=== PATIENT | female | born 1945 | race Caucasian/White ===

== ENCOUNTER 2016-11-09 10:11 | Day surgery (SDC) | payer MEDICARE, OTHER ==
[~2016-11-09 10:11] MED LIST: KETOROLAC TROMETHAMINE 0.45% 4 DROP/0.4 ML DROPERETTE OS PRN
[2016-11-09] MEDS ORDERED: LIDOCAINE 1% INJ-PF (10 MG/ML) 30 ML SDV ONE (10:42)
[2016-11-09] MEDS ORDERED: TOBRAMYCIN SULFATE/DEXAMETH OPH OINTMENT 3.5 GM ONE (10:42)
[2016-11-09] MEDS ORDERED: CHONDR SU A NA/HYALUR INTRAOC KIT (SURGICARE) ONE (10:42)
[2016-11-09] MEDS ORDERED: EPINEPHRINE INJ/PF 1 MG/1 ML AMPULE ONE (10:42)
[2016-11-09] MEDS: CYCLOPENTOLATE 0.2%/PHENYLEPHRINE 1% OPH SOLN 2 ML OS PRN ×3 (10:53→11:11)
[2016-11-09] MEDS: TROPICAMIDE 1% OPH SOLN 3 ML OS PRN ×3 (10:53→11:10)
[2016-11-09] MEDS: BESIFLOXACIN HCL 0.6% OPH SUSP 5 ML BOTTLE OS PRN ×3 (10:54→11:58)
[2016-11-09] MEDS: TETRACAINE HCL 0.5% OPH SOLN 0.6 ML DROPERETTE OS PRN ×3 (10:55→11:34)
[2016-11-09] MEDS ORDERED: MIDAZOLAM 2 MG/2 ML INJ ONE (11:09)
== END 2016-11-09 12:36 | disposition home or self-care (01) ==
LOC: SC 10:11
PROVIDERS: ATTEND Ophthalmology
PROC: 08RK3JZ Replacement of Left Lens with Synthetic Substitute, Percutaneous Approach (ICD-10-PCS; principal; 2016-11-09 11:15)
DX: H25.12 Age-related nuclear cataract, left eye (principal); J45.909 Unspecified asthma, uncomplicated; I10 Essential (primary) hypertension; E78.00 Pure hypercholesterolemia, unspecified; E03.9 Hypothyroidism, unspecified; K21.9 Gastro-esophageal reflux disease without esophagitis; Z79.51 Long term (current) use of inhaled steroids; Z79.899 Other long term (current) drug therapy; Z79.82 Long term (current) use of aspirin
CPT/HCPCS: 66984; V2788; J2250; J3490 ×3; A9270; J0171; 142

== ENCOUNTER 2016-11-23 09:48 | Day surgery (SDC) | payer MEDICARE, OTHER ==
[~2016-11-23 09:48] MED LIST changes: +CHONDR SU A NA/HYALUR INTRAOC KIT (SURGICARE) ONE; +EPINEPHRINE INJ/PF 1 MG/1 ML AMPULE ONE; +KETOROLAC TROMETHAMINE 0.45% 4 DROP/0.4 ML DROPERETTE OD PRN; -KETOROLAC TROMETHAMINE 0.45% 4 DROP/0.4 ML DROPERETTE OS PRN; +LIDOCAINE 1% INJ-PF (10 MG/ML) 30 ML SDV ONE; +LIDOCAINE 3.5% OPH GEL/PF 1 ML/TUBE OD PRN
[2016-11-23] MEDS: CYCLOPENTOLATE 0.2%/PHENYLEPHRINE 1% OPH SOLN 2 ML OD PRN ×3 (10:09→10:28)
[2016-11-23] MEDS: TROPICAMIDE 1% OPH SOLN 3 ML OD PRN ×3 (10:09→10:28)
[2016-11-23] MEDS: TETRACAINE HCL 0.5% OPH SOLN 0.6 ML DROPERETTE OD PRN ×4 (10:10→10:43)
[2016-11-23] MEDS: BESIFLOXACIN HCL 0.6% OPH SUSP 5 ML BOTTLE OD PRN ×4 (10:10→11:08)
[2016-11-23] MEDS ORDERED: FENTANYL CITRATE INJ/PF 100 MCG/2 ML AMPUL ONE (10:28)
[2016-11-23] MEDS ORDERED: MIDAZOLAM 2 MG/2 ML INJ ONE (10:28)
[2016-11-23] MEDS: TOBRAMYCIN SULFATE/DEXAMETH OPH OINTMENT 3.5 GM ONE ×2 (11:08)
== END 2016-11-23 11:50 | disposition home or self-care (01) ==
LOC: SC 09:48
PROVIDERS: ATTEND Ophthalmology
PROC: 08RJ3JZ Replacement of Right Lens with Synthetic Substitute, Percutaneous Approach (ICD-10-PCS; principal; 2016-11-23 10:45)
DX: H25.11 Age-related nuclear cataract, right eye (principal); Z98.42 Cataract extraction status, left eye; I10 Essential (primary) hypertension; K21.9 Gastro-esophageal reflux disease without esophagitis; J45.909 Unspecified asthma, uncomplicated; E78.00 Pure hypercholesterolemia, unspecified; E03.9 Hypothyroidism, unspecified; Z79.51 Long term (current) use of inhaled steroids; Z79.899 Other long term (current) drug therapy; Z79.82 Long term (current) use of aspirin
CPT/HCPCS: 66984; J2250; J3490 ×3; A9270; J0171; J3010; 142

== ENCOUNTER 2017-07-11 03:55 | Emergency (ER) | payer MEDICARE, OTHER ==
[2017-07-11 04:06] VITALS: BP 193/78
--- NOTE | 2017-07-11 04:28 | RADIOLOGY REPORT (SQ) ---
EXAM DESCRIPTION: Right RIBS and single view chest CLINICAL HISTORY: 71 years, Female, pain to right side ribs COMPARISON: None. NUMBER OF VIEWS: Single view of the chest and 3 views of the right ribs. TECHNIQUE: Single view of the chest and 3 views of the right ribs. LIMITATIONS: None. FINDINGS: Cardiomediastinal silhouette has normal size and contour. No consolidation, pneumothorax, or pleural effusion. Upper abdominal soft tissues unremarkable. Acute minimally displaced fractures of the right lateral sixth and seventh ribs. IMPRESSION: 1. Acute minimally displaced fractures of the right lateral sixth and seventh ribs. No pneumothorax identified. 2011 [employer]- All Rights Reserved
--- NOTE | 2017-07-11 05:30 | ER Document Report ---
HPI - HPI Patient complains to provider of: right rib pain, fall Pain Level: 4 Context: Patient is a 71-year-old female that comes emergency department for chief complaint of right-sided rib pain. She states she fell 4 days ago, has a bruised area on her right ribs, she states she made a movement with a deep breath earlier and felt a pop and felt sharp pain. She states pain has not gone away so she came in for evaluation. She denies shortness of breath although pain is worse with deep breaths. She denies dizziness, passing out, other areas of pain. She states when she fell she fell against a stool but did not hit her head. She has a small bruise on her right arm but states her arm does not hurt. She takes 81 mg of aspirin daily but otherwise does not take any blood thinners. She is very healthy generally, takes medicine for hypothyroidism. She lives at home. She drove herself here. - CONSTITUTIONAL Constitutional: DENIES: Fever, Chills - EENT EENT: DENIES: Sore Throat, Ear Pain, Eye problems - NEURO Neurology: REPORTS: Headache. DENIES: Weakness, Vision blurred, Dizzinesss / Vertigo - CARDIOVASCULAR Cardiovascular: DENIES: Chest pain - RESPIRATORY Respiratory: DENIES: Trouble Breathing, Coughing - GASTROINTESTINAL Gastrointestinal: DENIES: Abdominal Pain, Black / Bloody Stools - URINARY Urinary: DENIES: Dysuria, Urgency, Frequency - REPRODUCTIVE Reproductive: DENIES: :, Postmenopausal, Abnormal bleeding / discharge - MUSCULOSKELETAL Musculoskeletal: DENIES: Extremity pain Past Medical History - General Information source: Patient - Social History Smoking Status: Never Smoker Chew tobacco use (# tins/day): No Frequency of alcohol use: None Drug Abuse: None Lives with: Family Family History: Reviewed & Not Pertinent Patient has suicidal ideation: No Patient has homicidal ideation: No - Past Medical History Cardiac Medical History: Reports: Hx Coronary Artery Disease, Hx Hypercholesterolemia, Hx Hypertension Denies: Hx Heart Attack Pulmonary Medical History: Reports: Hx Asthma, Hx Pneumonia Denies: Hx Bronchitis, Hx COPD Neurological Medical History: Denies: Hx Cerebrovascular Accident, Hx Seizures Renal/ Medical History: Denies: Hx Peritoneal Dialysis GI Medical History: Denies: Hx Hepatitis, Hx Hiatal Hernia, Hx Ulcer Musculoskeltal Medical History: Denies Hx Arthritis Infectious Medical History: Denies: Hx Hepatitis Past Surgical History: Reports: Hx Gynecologic Surgery - tubal ligation, Hx Tubal Ligation. Denies: Hx Hysterectomy, Hx Mastectomy, Hx Open Heart Surgery, Hx Pacemaker - Immunizations Hx Diphtheria, Pertussis, Tetanus Vaccination: No Vertical Provider Document - CONSTITUTIONAL General Appearance: WD/WN, No Apparent Distress - INFECTION CONTROL TRAVEL OUTSIDE OF THE [place] IN LAST 30 DAYS: No - HEENT HEENT: Atraumatic, Normocephalic - NECK Neck: Normal Inspection - RESPIRATORY Respiratory: Breath Sounds Normal, No Respiratory Distress. negative: Chest Non -Tender - Tenderness over the right posterior lateral chest at the lower ribs, there is a contusion noted to the area, no crepitus, no other abnormalities noted over the chest - CARDIOVASCULAR Cardiovascular: Regular Rate, Regular Rhythm - GI/ABDOMEN Gastrointestinal: Abdomen Soft, Abdomen Non-Tender - BACK Back: Normal Inspection - MUSCULOSKELETAL/EXTREMETIES Musculoskeletal/Extremeties: KRYSTIN DUARTE. negative: Non-Tender - Small bruise over the right proximal outer humerus, no noted tenderness with palpation over the bone, normal range of motion of the arm, normal upper extremity exam otherwise, normal lower extremity exam - NEURO Level of Consciousness: Awake, Alert, Appropriate Motor/Sensory: No Motor Deficit, No Sensory Deficit - DERM Integumentary: Warm, Dry, No Rash Course - Re-evaluation Re-evalutation: Patient is very fit, very young appearing for her age. She does have bruising over her right posterior lateral chest wall, remaining chest and back are nontender, normal neurological exam, 4 day duration. Blood pressure is elevated, patient has pain, normally is not this elevated, this will be followed by primary care, patient will be medicated for pain after she goes home, she drove here. No headache, pain in the chest, no urinary retention. Chest film shows no lung abnormality, shows minimally displaced fractures of the sixth and seventh right ribs consistent with location of patient's pain. Discussed with patient. Provided with incentive spirometer, pain management, discussed healing, follow-up, and return precautions in detail. Patient states satisfaction and agreement. - Vital Signs Vital signs: Temp Pulse Resp BP Pulse Ox 98.2 F 81 18 193/78 H 99 07/11/17 04:04 07/11/17 04:04 07/11/17 04:04 07/11/17 04:06 07/11/17 04:04 Discharge - Discharge Clinical Impression: Right rib fracture Qualifiers: Encounter type: initial encounter Rib fracture type: single rib Fracture type: closed Qualified Code(s): S22.31XA - Fracture of one rib, right side, initial encounter for closed fracture Fall Qualifiers: Encounter type: initial encounter Qualified Code(s): W19.XXXA - Unspecified fall, initial encounter Condition: Stable Disposition: HOME, SELF-CARE Additional Instructions: Your x-ray shows fractures of the sixth and seventh ribs on the right side. No other abnormalities are seen. This will take weeks to heal, I recommend that you use the incentive spirometer to take full breaths multiple times a day to avoid getting pneumonia. You have been provided with pain medication, take if needed, if you do take it also take the Colace stool softener to avoid constipation. Follow-up with primary care. Return immediately if you worsen including difficulty breathing, fever, vomiting, or any other concerning or worsening symptoms. Prescriptions: Morphine Sulfate [Morphine Ir 15 Mg Tablet] 15 mg PO Q4HP PRN #20 tablet PRN Reason: Docusate Sodium [Colace 100 mg Capsule] 100 mg PO ASDIR PRN #30 capsule PRN Reason: Forms: Elevated Blood Pressure Referrals: ROCHELLE DEL TORO MD [Primary Care Provider] - Follow up as needed
[2017-07-11] MEDS ORDERED: HYDROCODONE/ACETAMINOPHEN 5-325 MG (6 TAB/ER DISP) PO PRN (05:47)
[2017-07-11] MEDS ORDERED: ONDANSETRON ODT 4 MG TAB (6 TAB/ER DISP) PO PRN (05:47)
== END 2017-07-11 05:56 | disposition home or self-care (01) ==
LOC: ER 03:55
DX: S22.41XA Multiple fractures of ribs, right side, initial encounter for closed fracture (principal); S40.021A Contusion of right upper arm, initial encounter; W19.XXXA Unspecified fall, initial encounter; R51 Headache; E03.9 Hypothyroidism, unspecified; I25.10 Atherosclerotic heart disease of native coronary artery without angina pectoris; I10 Essential (primary) hypertension; Z79.899 Other long term (current) drug therapy; Z79.82 Long term (current) use of aspirin
CPT/HCPCS: 99283; 71101; A9270 ×2

== ENCOUNTER 2018-04-15 12:13 | Emergency (ER) | payer MEDICARE, OTHER ==
--- NOTE | 2018-04-15 12:37 | ER Document Report ---
ED Medical Screen (RME) - General Chief Complaint: Flu Symptoms Stated Complaint: FLU SYMPTOMS Time Seen by Provider: 04/15/18 12:35 Primary Care Provider: ROCHELLE DEL TORO MD [Primary Care Provider] - Follow up as needed Mode of Arrival: Ambulatory Information source: Patient TRAVEL OUTSIDE OF THE [place] IN LAST 30 DAYS: No - HPI Patient complains to provider of: cough, fever Onset: Last week - pt with c/o cough, fever, and body aches for the past few days. Did get flu shot this year - Related Data Allergies/Adverse Reactions: No Known Allergies Allergy (Verified 04/15/18 12:14) Past Medical History - Past Medical History Cardiac Medical History: Reports: Hx Coronary Artery Disease, Hx Hypercholesterolemia, Hx Hypertension Denies: Hx Heart Attack Pulmonary Medical History: Reports: Hx Asthma, Hx Pneumonia Denies: Hx Bronchitis, Hx COPD Neurological Medical History: Denies: Hx Cerebrovascular Accident, Hx Seizures Renal/ Medical History: Denies: Hx Peritoneal Dialysis GI Medical History: Denies: Hx Hepatitis, Hx Hiatal Hernia, Hx Ulcer Musculoskeltal Medical History: Denies Hx Arthritis Infectious Medical History: Denies: Hx Hepatitis Past Surgical History: Reports: Hx Gynecologic Surgery - tubal ligation, Hx Tubal Ligation. Denies: Hx Hysterectomy, Hx Mastectomy, Hx Open Heart Surgery, Hx Pacemaker - Immunizations Hx Diphtheria, Pertussis, Tetanus Vaccination: No Physical Exam - Vital signs Vitals: Temp Pulse Resp BP Pulse Ox 100 F 98 20 153/62 H 99 04/15/18 12:24 04/15/18 12:24 04/15/18 12:24 04/15/18 12:24 04/15/18 12:24 Course - Vital Signs Vital signs: Temp Pulse Resp BP Pulse Ox 100 F 98 20 153/62 H 99 04/15/18 12:24 04/15/18 12:24 04/15/18 12:24 04/15/18 12:24 04/15/18 12:24 Doctor's Discharge - Discharge Referrals: ROCHELLE DEL TORO MD [Primary Care Provider] - Follow up as needed
[2018-04-15 13:06] LABS: ABSOLUTE EOSINOPHILS # (AUTO) 0.1 10^3/uL (0.0-0.6); ABSOLUTE LYMPHOCYTES (AUTO) 1.6 10^3/uL (0.5-4.7); ABSOLUTE MONOCYTES (AUTO) 0.9 10^3/uL (0.1-1.4); ABSOLUTE NEUT (AUTO) 6.4 10^3/uL (1.7-8.2); BASOPHILS % (AUTO) 0.4 % (0-2); HEMATOCRIT 38.5 % (36.0-47.0); HEMOGLOBIN 13.2 g/dL (12.0-15.5); MEAN CORPUSCULAR HEMOGLOBIN 32.4 pg (27.0-33.4); MEAN CORPUSCULAR HGB CONC 34.2 g/dL (32.0-36.0); MEAN CORPUSCULAR VOLUME 95 fl (80-97); MONOCYTES % (AUTO) 10.3 % (3-13); PLATELET COUNT 232 10^3/uL (150-450); RED BLOOD COUNT 4.07 10^6/uL (3.72-5.28); RED CELL DISTRIBUTION WIDTH 13.3 % (11.5-14.0); SEGMENTED NEUTROPHILS % (AUTO) 70.3 % (42-78); TOTAL CELLS COUNTED % (AUTO) 100 %; WHITE BLOOD COUNT 9.1 10^3/uL (4.0-10.5)
[2018-04-15 13:16] LABS: APPEARANCE,URINE CLEAR; BILIRUBIN,URINE NEGATIVE (NEGATIVE); COLOR,URINE STRAW; GLUCOSE, URINE NEGATIVE (NEGATIVE); KETONES,URINE NEGATIVE (NEGATIVE); LEUKOCYTE ESTERASE,URINE NEGATIVE (NEGATIVE); NITRITE,URINE NEGATIVE (NEGATIVE); PROTEIN,URINE NEGATIVE (NEGATIVE); URINE SPECIFIC GRAVITY 1.006; UROBILINOGEN,URINE NEGATIVE mg/dL (<2.0)
--- NOTE | 2018-04-15 13:20 | RADIOLOGY REPORT (SQ) ---
EXAM DESCRIPTION: CHEST 2 VIEWS COMPLETED DATE/TIME: 04/15/2018 1:07 pm REASON FOR STUDY: cough; fever COMPARISON: 07/11/2017 EXAM PARAMETERS: NUMBER OF VIEWS: two views TECHNIQUE: Digital Frontal and Lateral radiographic views of the chest acquired. RADIATION DOSE: NA LIMITATIONS: none FINDINGS: LUNGS AND PLEURA: No opacities, masses or pneumothorax. No pleural effusion. MEDIASTINUM AND HILAR STRUCTURES: No masses or contour abnormalities. HEART AND VASCULAR STRUCTURES: Heart normal size. No evidence for failure. BONES: Healed rib fractures. HARDWARE: None in the chest. OTHER: No other significant finding. IMPRESSION: NO ACUTE RADIOGRAPHIC FINDING IN THE CHEST. TECHNICAL DOCUMENTATION: JOB ID: [id number] [employer]- All Rights Reserved Reading location - IP/workstation name: [email or web address]
[2018-04-15 13:29] LABS: A TYPE INFLUENZA AG NEGATIVE (NEGATIVE); B INFLUENZA AG NEGATIVE (NEGATIVE)
[2018-04-15 13:32] LABS: ALANINE AMINOTRANSFERASE 22 U/L (9-52); ALBUMIN 4.4 g/dL (3.5-5.0); ALKALINE PHOSPHATASE 82 U/L (38-126); ANION GAP 9 (5-19); ASPARTATE AMINO TRANSFERASE 35 U/L (14-36); BILIRUBIN,DIRECT 0.3 mg/dL (0.0-0.4); BILIRUBIN,TOTAL 0.7 mg/dL (0.2-1.3); BLOOD UREA NITROGEN 7 mg/dL (7-20); CALCIUM 9.5 mg/dL (8.4-10.2); CARBON DIOXIDE 27 mmol/L (22-30); CHLORIDE 104 mmol/L (98-107); GLUCOSE 106 mg/dL (75-110); POTASSIUM 5.2 mmol/L (3.6-5.0); SODIUM 139.6 mmol/L (137-145); TOTAL PROTEIN 7.2 g/dL (6.3-8.2)
--- NOTE | 2018-04-15 15:16 | ER Document Report ---
ED General - General Chief Complaint: Flu Symptoms Stated Complaint: FLU SYMPTOMS Time Seen by Provider: 04/15/18 12:35 Primary Care Provider: ROCHELLE DEL TORO MD [Primary Care Provider] - Follow up as needed Mode of Arrival: Ambulatory Information source: Patient TRAVEL OUTSIDE OF THE [place] IN LAST 30 DAYS: No - HPI Patient complains to provider of: Flulike symptoms Onset: Other - 4 days ago Onset/Duration: Sudden Quality of pain: Achy Severity: Severe Pain Level: 4 Associated symptoms: Body/muscle aches, Chills, Productive cough, Fever, Shortness of breath. denies: Nausea, Vomiting Exacerbated by: Denies Relieved by: Denies Similar symptoms previously: No Recently seen / treated by doctor: No Notes: 72-year-old female coming in today with flulike symptoms. Patient reports headaches, teeth hurt, bones hurt, muscles ache, and low-grade fever. Symptoms have been for 4 days. She has no nausea vomiting or diarrhea. He does have asthma and feels like it has affected her asthma to some extent. She was in receipt of the flu shot this year - Related Data Allergies/Adverse Reactions: No Known Allergies Allergy (Verified 04/15/18 12:14) Past Medical History - General Information source: Patient - Social History Smoking Status: Never Smoker Family History: Reviewed & Not Pertinent Patient has suicidal ideation: No Patient has homicidal ideation: No - Past Medical History Cardiac Medical History: Reports: Hx Coronary Artery Disease, Hx Hypercholesterolemia, Hx Hypertension Denies: Hx Heart Attack Pulmonary Medical History: Reports: Hx Asthma, Hx Pneumonia Denies: Hx Bronchitis, Hx COPD Neurological Medical History: Denies: Hx Cerebrovascular Accident, Hx Seizures Renal/ Medical History: Denies: Hx Peritoneal Dialysis GI Medical History: Denies: Hx Hepatitis, Hx Hiatal Hernia, Hx Ulcer Musculoskeletal Medical History: Denies Hx Arthritis Infectious Medical History: Denies: Hx Hepatitis Past Surgical History: Reports: Hx Gynecologic Surgery - tubal ligation, Hx Tubal Ligation. Denies: Hx Hysterectomy, Hx Kidney (Renal Surgery), Hx Mastectomy, Hx Open Heart Surgery, Hx Pacemaker - Immunizations Hx Diphtheria, Pertussis, Tetanus Vaccination: No Review of Systems - Review of Systems Notes: Constitutional: Positive for fevers and chills EENT: Positive for mild redness in the eyes Cardiovascular: No chest pain. No palpitations. Respiratory: Positive for productive cough Gastrointestinal: No abdominal pain. No nausea, vomiting, or diarrhea. Genitourinary: Atraumatic. No lesions. No pain. No discharge. Musculoskeletal: Positive for myalgias and arthralgias Skin: No rash or lesions. Lymphatic: No swollen lymph nodes. Neurologic: Positive for headache. No syncope. Psychiatric: No suicidal or homicidal ideation. Physical Exam - Vital signs Vitals: Temp Pulse Resp BP Pulse Ox 100 F 98 20 153/62 H 99 04/15/18 12:24 04/15/18 12:24 04/15/18 12:24 04/15/18 12:24 04/15/18 12:24 - Notes Notes: General: Well-developed, well-nourished. In no acute distress. Non-toxic appearing. Cardiac: Well-perfused. Regular rate and rhythm. No murmurs, rubs, or gallops. Pulmonary: No respiratory distress. No cyanosis. Bilateral lung gilliam are clear to auscultation. Mild bilateral wheeze Abdominal: Non-distended. Non-rigid. Bowels sounds are present in all four quadrants. No guarding or rebound. HEENT: Head is atraumatic. Conjunctivae not reddened. No tearing. PERRL. EOMI. Orbits atraumatic. No periorbital swelling or erythema. Oropharynx is without erythema, swelling, or exudates. Neck: Supple. No adenopathy. No meningismus. Dermatologic: Warm with good turgor. No rash. Atraumatic. Chest: Atraumatic. No chest wall tenderness to palpation. Musculoskeletal: Moves all extremities well. No range of motion deficits. no muscular or joint tenderness. No paraspinal muscle tenderness. no midline spinal tenderness or step-off. Genitourinary: Examination deferred Neurologic: No gross neurologic deficits. Psychiatric: Normal mood. Course - Re-evaluation Re-evalutation: 04/15/18 15:14 Patient's lab work, flu swab, and chest x-ray are negative. Patient does look and sound like she may truly have influenza. Her onset was at the very latest Monday afternoon which puts her out of the realm of treatment for Tamiflu. Because of her asthma exacerbation I will put her on 5-day course of prednisone. I will also give her some Cheratussin AC for her cough. Follow-up with her doctor. - Vital Signs Vital signs: Temp Pulse Resp BP Pulse Ox 100 F 98 20 153/62 H 99 04/15/18 12:24 04/15/18 12:24 04/15/18 12:24 04/15/18 12:24 04/15/18 12:24 - Laboratory Result Diagrams: 04/15/18 12:55 04/15/18 12:55 Laboratory results interpreted by me: 04/15/18 12:55 Potassium 5.2 H - Diagnostic Test Radiology reviewed: Reports reviewed Discharge - Discharge Clinical Impression: Viral syndrome Asthma exacerbation Qualifiers: Asthma severity: unspecified severity Asthma persistence: unspecified Qualified Code(s): J45.901 - Unspecified asthma with (acute) exacerbation Disposition: HOME, SELF-CARE Instructions: Viral Syndrome ([facility]), Asthma ([facility]) Additional Instructions: Take the medication that was prescribed to you as directed. You need to follow- up closely with your primary care doctor in the next 24-48 hours. If you are suddenly worse, it is recommended that she come back to the ED to be checked again. Prescriptions: Codeine Phosphate/Guaifenesin [Cheratussin AC Syrup] 5 ml PO Q6H #120 ml Prednisone [Deltasone 20 mg Tablet] 2 tab PO DAILY 5 Days #10 tablet Referrals: ROCHELLE DEL TORO MD [Primary Care Provider] - Follow up as needed
[2018-04-15 15:42] VITALS: BP 150/67
== END 2018-04-15 15:43 | disposition home or self-care (01) ==
LOC: ER 12:13
DX: B34.9 Viral infection, unspecified (principal); J45.901 Unspecified asthma with (acute) exacerbation; M79.10 Myalgia, unspecified site; M25.50 Pain in unspecified joint; R05 Cough; R50.9 Fever, unspecified; R06.02 Shortness of breath; R51 Headache; K08.89 Other specified disorders of teeth and supporting structures; M89.8X9 Other specified disorders of bone, unspecified site; J45.909 Unspecified asthma, uncomplicated; I25.10 Atherosclerotic heart disease of native coronary artery without angina pectoris; I10 Essential (primary) hypertension
CPT/HCPCS: 36415; 71046; 80053; 81001; 85025; 87804; 99283

== ENCOUNTER 2018-12-25 13:57 | Emergency (ER) | payer MEDICARE, OTHER ==
[2018-12-25] MEDS ORDERED: NORMAL SALINE 1000 ML 1,000 ML IV ONE (14:14)
--- NOTE | 2018-12-25 14:14 | ER Document Report ---
ED Medical Screen (RME) - General Chief Complaint: Abdominal Pain Stated Complaint: POSSIBLE DIVERTICULITIS ISSUE Time Seen by Provider: 12/25/18 14:11 Primary Care Provider: ROCHELLE DEL TORO MD [Primary Care Provider] - Follow up as needed TRAVEL OUTSIDE OF THE [place] IN LAST 30 DAYS: No - HPI Notes: 12/25/18 73-year-old female to the emergency department with complaints of left lower quadrant abdominal pain and diarrhea for the past 2 weeks. She states that she has had diverticulitis before and this feels the same. She denies any fevers or chills. She does admit to some nausea. She denies any blood in her stool. She denies any recent antibiotic use, travel, change in diet, or any other complaints. Performed a medical screening exam on patient and determined that she will need main side ER provider evaluation and management. Have gone ahead and started initial orders to aid in expedited care. - Related Data Allergies/Adverse Reactions: No Known Allergies Allergy (Verified 12/25/18 14:09) Past Medical History - Social History Chew tobacco use (# tins/day): No Frequency of alcohol use: None Drug Abuse: None - Past Medical History Cardiac Medical History: Reports: Hx Coronary Artery Disease, Hx Hypercholesterolemia, Hx Hypertension Denies: Hx Heart Attack Pulmonary Medical History: Reports: Hx Asthma, Hx Pneumonia Denies: Hx Bronchitis, Hx COPD Neurological Medical History: Denies: Hx Cerebrovascular Accident, Hx Seizures Renal/ Medical History: Denies: Hx Peritoneal Dialysis GI Medical History: Denies: Hx Hepatitis, Hx Hiatal Hernia, Hx Ulcer Musculoskeltal Medical History: Denies Hx Arthritis Infectious Medical History: Denies: Hx Hepatitis Past Surgical History: Reports: Hx Gynecologic Surgery - tubal ligation, Hx Tubal Ligation. Denies: Hx Hysterectomy, Hx Kidney (Renal Surgery), Hx Mastectomy, Hx Open Heart Surgery, Hx Pacemaker - Immunizations Hx Diphtheria, Pertussis, Tetanus Vaccination: No Physical Exam - Vital signs Vitals: Temp Pulse Resp BP Pulse Ox 99.3 F 95 18 158/79 H 97 12/25/18 14:05 12/25/18 14:05 12/25/18 14:05 12/25/18 14:05 12/25/18 14:05 Course - Vital Signs Vital signs: Temp Pulse Resp BP Pulse Ox 99.9 F 97 16 151/70 H 100 12/25/18 19:18 12/25/18 19:18 12/25/18 19:18 12/25/18 19:18 12/25/18 19:18 - Laboratory Result Diagrams: 12/25/18 15:59 12/25/18 15:59 Laboratory results interpreted by me: 12/25/18 15:59 WBC 10.9 H RDW 14.2 H Absolute Neuts (auto) 8.5 H Doctor's Discharge - Discharge Clinical Impression: Sigmoid diverticulitis Condition: Good Disposition: HOME, SELF-CARE Additional Instructions: Come back immediately with any increased pain, change in location or quality of pain, fevers or vomiting, or any other acute problems. Please take the antibiotics as prescribed and please follow-up with your primary care physician as we have discussed. Prescriptions: Cefuroxime Axetil [Ceftin 500 mg Tablet] 1 tab PO BID #20 tablet Metronidazole [Flagyl 500 mg Tablet] 500 mg PO Q8H #10 tablet Hydrocodone/Acetaminophen [[place] 5-325 mg Tablet] 1 tab PO Q6H #12 tablet Ondansetron [Zofran Odt 4 mg Tablet] 1 tab PO Q6H #15 tab.rapdis Referrals: ROCHELLE DEL TORO MD [Primary Care Provider] - Follow up as needed
--- NOTE | 2018-12-25 16:08 | ER Document Report ---
ED GI/ - General Chief Complaint: Abdominal Pain Stated Complaint: POSSIBLE DIVERTICULITIS ISSUE Time Seen by Provider: 12/25/18 14:11 Primary Care Provider: ROCHELLE DEL TORO MD [Primary Care Provider] - Follow up as needed Notes: HPI: 73-year-old female who presents today with the onset around 3 days ago of some non-rating left lower quadrant "pain". She denies any aggravating relieving factors. She states no nausea, vomiting, or diarrhea. No dysuria, no flank pain. History of diverticulitis in the past. ROS: See HPI All other review of systems reviewed and otherwise negative Reviewed vital signs and nursing note as charted by RN. PHYSICAL EXAM: CONSTITUTIONAL: Alert and oriented and responds appropriately to questions. Well-appearing; well-nourished HEAD: Normocephalic; atraumatic EYES: Sclerae non-icteric CARD: Regular rate and rhythm; no murmurs; symmetric distal pulses RESP: Normal chest excursion without splinting or tachypnea; breath sounds clear and equal bilaterally; no wheezes, no rhonchi, no rales ABD/GI: Normal bowel sounds; non-distended; soft, tenderness to palpation of the left lower quadrant without any rebound or guarding. No palpable masses or abdominal bruits BACK: The back appears normal and is non-tender to palpation EXT: Normal ROM in all joints; non-tender to palpation; no edema SKIN: No acute lesions noted NEURO: CN 2-12 intact; 5/5 bilateral upper and lower extremity strength with sensation intact to light touch PSYCH: The patient's mood and manner are appropriate. Grooming and personal hygiene are appropriate. TRAVEL OUTSIDE OF THE [place] IN LAST 30 DAYS: No - Related Data Allergies/Adverse Reactions: No Known Allergies Allergy (Verified 12/25/18 14:09) Past Medical History - Social History Smoking Status: Never Smoker Chew tobacco use (# tins/day): No Frequency of alcohol use: None Drug Abuse: None Family History: Reviewed & Not Pertinent Patient has suicidal ideation: No Patient has homicidal ideation: No - Past Medical History Cardiac Medical History: Reports: Hx Coronary Artery Disease, Hx Hypercholesterolemia, Hx Hypertension Denies: Hx Heart Attack Pulmonary Medical History: Reports: Hx Asthma, Hx Pneumonia Denies: Hx Bronchitis, Hx COPD Neurological Medical History: Denies: Hx Cerebrovascular Accident, Hx Seizures Renal/ Medical History: Denies: Hx Peritoneal Dialysis GI Medical History: Denies: Hx Hepatitis, Hx Hiatal Hernia, Hx Ulcer Musculoskeletal Medical History: Denies Hx Arthritis Infectious Medical History: Denies: Hx Hepatitis Past Surgical History: Reports: Hx Gynecologic Surgery - tubal ligation, Hx Tub al Ligation. Denies: Hx Hysterectomy, Hx Kidney (Renal Surgery), Hx Mastectomy, Hx Open Heart Surgery, Hx Pacemaker - Immunizations Hx Diphtheria, Pertussis, Tetanus Vaccination: No Physical Exam - Vital signs Vitals: Temp Pulse Resp BP Pulse Ox 99.3 F 95 18 158/79 H 97 12/25/18 14:05 12/25/18 14:05 12/25/18 14:05 12/25/18 14:05 12/25/18 14:05 Course - Re-evaluation Re-evalutation: 12/25/18 16:08 Given the above history and physical, we will obtain basic labs, CT scan of the abdomen and pelvis, and urine analysis. I would like to assess for the possibility of diverticulitis. Patient's pain is well controlled at this time. 12/25/18 17:59 Labs and imaging as recorded. Patient's pain is controlled. No vomiting. Patient denies any allergies to medications. I will provide Flagyl and a c ephalosporin with strict return precautions and follow-up with the primary care physician. - Vital Signs Vital signs: Temp Pulse Resp BP Pulse Ox 99.3 F 95 18 158/79 H 97 12/25/18 14:05 12/25/18 14:05 12/25/18 14:05 12/25/18 14:05 12/25/18 14:05 - Laboratory Result Diagrams: 12/25/18 15:59 12/25/18 15:59 Laboratory results interpreted by me: 12/25/18 15:59 WBC 10.9 H RDW 14.2 H Absolute Neuts (auto) 8.5 H Discharge - Discharge Clinical Impression: Sigmoid diverticulitis Condition: Good Disposition: HOME, SELF-CARE Additional Instructions: Come back immediately with any increased pain, change in location or quality of pain, fevers or vomiting, or any other acute problems. Please take the a ntibiotics as prescribed and please follow-up with your primary care physician as we have discussed. Prescriptions: Cefuroxime Axetil [Ceftin 500 mg Tablet] 1 tab PO BID #20 tablet Metronidazole [Flagyl 500 mg Tablet] 500 mg PO Q8H #10 tablet Hydrocodone/Acetaminophen [[place] 5-325 mg Tablet] 1 tab PO Q6H #12 tablet Ondansetron [Zofran Odt 4 mg Tablet] 1 tab PO Q6H #15 tab.jeffdis Referrals: ROCHELLE DEL TORO MD [Primary Care Provider] - Follow up as needed
[2018-12-25 16:16] LABS: ABSOLUTE BASOPHILS # (AUTO) 0.1 10^3/uL (0.0-0.2); ABSOLUTE EOSINOPHILS # (AUTO) 0.2 10^3/uL (0.0-0.6); ABSOLUTE LYMPHOCYTES (AUTO) 1.5 10^3/uL (0.5-4.7); ABSOLUTE MONOCYTES (AUTO) 0.7 10^3/uL (0.1-1.4); ABSOLUTE NEUT (AUTO) 8.5 10^3/uL (1.7-8.2); BASOPHILS % (AUTO) 0.5 % (0-2); HEMATOCRIT 44.4 % (36.0-47.0); HEMOGLOBIN 15.1 g/dL (12.0-15.5); LYMPHOCYTES % (AUTO) 13.6 % (13-45); MEAN CORPUSCULAR HGB CONC 34.1 g/dL (32.0-36.0); MEAN CORPUSCULAR VOLUME 94 fl (80-97); MONOCYTES % (AUTO) 6.3 % (3-13); PLATELET COUNT 227 10^3/uL (150-450); RED BLOOD COUNT 4.73 10^6/uL (3.72-5.28); RED CELL DISTRIBUTION WIDTH 14.2 % (11.5-14.0); SEGMENTED NEUTROPHILS % (AUTO) 77.6 % (42-78); TOTAL CELLS COUNTED % (AUTO) 100 %; WHITE BLOOD COUNT 10.9 10^3/uL (4.0-10.5)
[2018-12-25 16:43] LABS: ALBUMIN 4.6 g/dL (3.5-5.0); ALKALINE PHOSPHATASE 86 U/L (38-126); ANION GAP 12 (5-19); ASPARTATE AMINO TRANSFERASE 26 U/L (14-36); BILIRUBIN,DIRECT 0.1 mg/dL (0.0-0.4); BILIRUBIN,TOTAL 0.8 mg/dL (0.2-1.3); BLOOD UREA NITROGEN 15 mg/dL (7-20); CALCIUM 9.6 mg/dL (8.4-10.2); CARBON DIOXIDE 25 mmol/L (22-30); CHLORIDE 103 mmol/L (98-107); GLUCOSE 97 mg/dL (75-110); POTASSIUM 4.3 mmol/L (3.6-5.0); TOTAL PROTEIN 7.7 g/dL (6.3-8.2)
--- NOTE | 2018-12-25 17:48 | RADIOLOGY REPORT (SQ) ---
EXAM DESCRIPTION: CT ABD/PELVIS WITH IV ONLY COMPLETED DATE/TIME: 12/25/2018 5:20 pm REASON FOR STUDY: LLQ pain for 2 weeks COMPARISON: 01/29/2015 TECHNIQUE: CT scan of the abdomen and pelvis performed using helical scanning technique with dynamic intravenous contrast injection. No oral contrast. Images reviewed with lung, soft tissue, and bone w indows. Reconstructed coronal and sagittal MPR images reviewed. Delayed images for evaluation of the urinary system also acquired. All images stored on PACS. All CT scanners at this facility use dose modulation, iterative reconstruction, and/or weight based d osing when appropriate to reduce radiation dose to as low as reasonably achievable (ALARA). [facility]: Dose Right [facility]: CareDose [facility]: Dose Right [facility]: Teradose 4D [facility]: [place] CONTRAST TYPE AND DOSE: contrast/concentration: Isovue 350.00 mg/ml; Total Contrast Delivered: 62.0 ml; Total Saline Delivered: 55.0 ml RENAL FUNCTION: GFR > 60. RADIATION DOSE: CT Rad equipment meets quality standard of care and radiation dose reduction techniq ues were employed. CTDIvol: 3.5 - 3.5 mGy. DLP: 346 mGy-cm.. LIMITATIONS: None. FINDINGS: LOWER CHEST: No significant findings. LIVER: Normal size. No enhancing masses. No dilated ducts. SPLEEN: Normal size. No focal lesions. PANCREAS: No masses identified. No significant calcifications. No adjacent inflammation or peripancre atic fluid collections. Pancreatic duct not dilated. GALLBLADDER: No calcified stones. No inflammatory changes to suggest cholecystitis. ADRENAL GLANDS: No significant masses. RIGHT KIDNEY AND URETER: No cysts identified. No solid masses identified. No calcified stones. No hyd ronephrosis or hydroureter. LEFT KIDNEY AND URETER: No cysts identified. No solid masses identified. No calcified stones. No hydr onephrosis or hydroureter. AORTA AND VESSELS: No aneurysm. No dissection. Renal arteries, SMA, celiac without significant stenos is. RETROPERITONEUM: No bulky retroperitoneal adenopathy. BOWEL AND PERITONEAL CAVITY: No obstruction. Upper sigmoid colon inflammatory changes suggesting div erticulitis. No free air or fluid collection. APPENDIX: Normal. PELVIS: Unremarkable bladder. ABDOMINAL WALL: No masses. No hernias. BONES: No acute findings. OTHER: No other significant finding. IMPRESSION: Findings consistent with early diverticulitis in the upper sigmoid colon.No free air or fluid collection. TECHNICAL DOCUMENTATION: JOB ID: [id number] Quality ID # [id number]: Final reports with documentation of one or more dose reduction techniques (e.g., Au tomated exposure control, adjustment of the mA and/or kV according to patient size, use of iterative reconstruction technique) 2010 [employer]- All Rights Reserved Reading location - IP/workstation name: [email or web address]
[2018-12-25] MEDS ORDERED: METRONIDAZOLE 500 MG TABLET PO ONE (17:59)
[2018-12-25] MEDS ORDERED: CEFTRIAXONE 1 GM/D5W RTU 1 GM/50 ML RTUPB IV ONE (17:59)
[2018-12-25] MEDS ORDERED: HYDROCODONE/ACETAMINOPHEN 5-325 MG TABLET PO ONE (19:06)
[2018-12-25 19:19] VITALS: BP 151/70
== END 2018-12-25 19:19 | disposition home or self-care (01) ==
LOC: ER 13:57
DX: K57.32 Diverticulitis of large intestine without perforation or abscess without bleeding (principal); R10.32 Left lower quadrant pain; I25.10 Atherosclerotic heart disease of native coronary artery without angina pectoris; E78.00 Pure hypercholesterolemia, unspecified; I10 Essential (primary) hypertension; Z98.51 Tubal ligation status
CPT/HCPCS: 36415; 83690; 85025; 80053; 74177; A9270 ×2; J7030; J0696; 99284

== ENCOUNTER → 2019-03-15 | Outpatient (CLI) | payer MEDICARE, OTHER | LOC: LAB 11:38 | PROVIDERS: ATTEND Ophthalmology | DX: M31.8 Other specified necrotizing vasculopathies (principal); H47.011 Ischemic optic neuropathy, right eye | CPT/HCPCS: 36415; 85652; 86140 ==

== ENCOUNTER → 2019-03-20 | Outpatient (CLI) | payer MEDICARE, OTHER ==
--- NOTE | 2019-03-20 12:29 | RADIOLOGY REPORT (SQ) ---
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 TECHNIQUE: Grayscale ultrasound, Doppler velocity and spectra, and color Doppler images acquired of the extra-cranial carotid and vertebral arteries. Images stored on PACS. LIMITATIONS: None. FINDINGS: RIGHT CAROTID CCA Velocities: Within normal limits. ICA Velocities Peak systolic 1.14 m/s. End diastolic 0.34 m/s. Proximal ICA/CCA peak systolic ratio 1.5. Spectra normal. No significant plaque. LEFT CAROTID CCA Velocities: Within normal limits. ICA Velocities Peak systolic 1.32 m/s. End diastolic 0.38 m/s. Proximal ICA/CCA peak systolic ratio 1.4. Spectra normal. No significant plaque. VERTEBRAL ARTERIES: Antegrade flow. Normal waveforms. SUBCLAVIAN ARTERIES: No finding. OTHER: No other significant finding. IMPRESSION: NO HEMODYNAMICALLY SIGNIFICANT STENOSIS. COMMENT: Quality ID #[id number]: Velocity criteria are extrapolated from the diameter data as defined by t he Society of Radiologists in Ultrasound Consensus Conference. Radiology 2003: 229; 340-346. TECHNICAL DOCUMENTATION: JOB ID: [id number] [employer]- All Rights Reserved Reading location - IP/workstation name: [email or web address]
== END ==
LOC: SP 10:44
PROVIDERS: ATTEND Family Medicine
DX: H47.011 Ischemic optic neuropathy, right eye (principal)
CPT/HCPCS: 93880